=== PATIENT | male | born 1950 | race Caucasian/White ===

== ENCOUNTER 2020-07-04 11:08 | Outpatient (CLI) | payer MEDICARE, OTHER | END 2020-07-04 11:09 | disposition home or self-care (01) | LOC: BURRAD 11:08 | PROVIDERS: ATTEND Registered Nurse Community Health | DX: M25.472 Effusion, left ankle (principal); Z98.890 Other specified postprocedural states ==

== ENCOUNTER 2022-01-31 11:31 | Emergency (ER) | payer MEDICARE, OTHER | END 2022-01-31 13:40 | disposition left against medical advice (07) | LOC: BURERS 11:31 | DX: S61.213A Laceration without foreign body of left middle finger without damage to nail, initial encounter (principal); S61.215A Laceration without foreign body of left ring finger without damage to nail, initial encounter; S60.417A Abrasion of left little finger, initial encounter; I10 Essential (primary) hypertension; W26.9XXA Contact with unspecified sharp object(s), initial encounter; Y99.0 Civilian activity done for income or pay | CPT/HCPCS: 99282 ==